=== PATIENT | male | born 1955 | race Caucasian/White ===

== ENCOUNTER 2017-08-07 15:02 | Emergency (ER) | payer MEDICAID ==
--- NOTE | 2017-08-07 15:44 | EDPHY ---
H & P Time Seen by Provider: 08/07/17 15:27 HPI/ROS: CHIEF COMPLAINT: Hypothermic, intoxicated HISTORY OF PRESENT ILLNESS: The patient is a homeless 61 y/o male arriving via EMS after police located him wet, cold, and intoxicated on the street. He was found down next to his wheelchair intoxicated. He had C3-C4 surgery 2 months ago, and states that he should be wearing a brace but was not in his wheelchair or using his brace. He denies neck pain, any associated symptoms or recent coughs or URI symptoms. Parts of the HPI obtained from nurses and EMS as patient was difficult to understand due to intoxicated state. REVIEW OF SYSTEMS: Constitutional: No fever, Eyes: No visual changes ENT: No sore throat Respiratory: Cough, no shortness of breath Cardiac: No chest pain Gastrointestinal: no abdominal pain Genitourinary: no dysuria Musculoskeletal: No leg pain or swelling Skin: No rash Neurological: No headache Psychiatric: depression Past Medical/Surgical History: C3-C4 surgery, not wearing brace Social History: Homeless, non-resident, recently in [place] Physical Exam: General Appearance: Somnolent, cooperative, slurred speech Eyes: Pupils equal and round, no conjunctival pallor or injection ENT, Mouth: Mucous membranes moist Neck: Normal inspection, moves neck easily and fully without apparent pain Respiratory: Lungs are clear to auscultation Cardiovascular: Regular rate and rhythm Gastrointestinal: Abdomen is soft and non-tender Neurological: Drowsy, nonfocal exam Skin: Warm and dry Extremities: Normal inspection Psychiatric: Mood and affect normal Constitutional: Initial Vital Signs Temperature (C) 36.4 C 08/07/17 15:50 Heart Rate 86 08/07/17 15:50 Respiratory Rate 16 08/07/17 15:50 Blood Pressure 112/82 H 08/07/17 15:50 O2 Sat (%) 83 L 08/07/17 15:50 O2 Delivery Mode Nasal Cannula O2 (L/minute) 2 Allergies/Adverse Reactions: No Known Allergies Allergy (Unverified 08/07/17 15:49) Home Medications: Medication Instructions Recorded NK [No Known Home Meds] 08/07/17 Medical Decision Making ED Course/Re-evaluation: The patient is a homeless 61 y/o male with a history of C3-C4 surgery who was found by police cold, wet, and intoxicated. He denies any recent illness, cough , or other associated symptoms. I believe he is just intoxicated and in need of a warm place to sleep [facility]. On an [facility] hold. 1540: The patient was asleep when I entered. He awoke to tactile stimuli. His speech is slurred and difficult to understand. He appears intoxicated. He was slightly hypoxic on room air and was breathing through his mouth. He is on nasal canula oxygen to improve his hypoxia. I suggested [facility] for a warm place to sleep and detox. I observed this patient the emergency department for 3 hours. He is now clinically sober and able to walk with a steady gait. Apparently this patient is not welcome at the [facility]. He will be discharged to the street. Encouraged to go to the [facility]. Differential Diagnosis: Altered mental status including but not limited to hypoglycemia, infectious process, electrolyte abnormality, head injury and intoxicants. Departure - Departure Disposition: Home, Routine, Self-Care Clinical Impression: Intoxication Condition: Good Instructions: Alcohol Intoxication (ED) Additional Instructions: Take Bus #225 to the [facility] at [facility]. The address is [address] [place] [id number] Referrals: [facility] [Outside] - As per Instructions [facility],. [Clinic] - As per Instructions Report Scribed for: Ronit Riggins Report Scribed by: Caitie Scanlon Date of Report: 08/07/17 Time of Report: 15:53 Physician Review and Approval Statement: 08/07/17 15:53 Portions of this note were transcribed by a remote medical coder. I personally performed a history, physical exam, medical decision making, and confirmed accuracy of information the transcribed note.
--- NOTE | 2017-08-07 15:44 | EDPHY ---
H & P Time Seen by Provider: 08/07/17 15:27 HPI/ROS: CHIEF COMPLAINT: Hypothermic, intoxicated HISTORY OF PRESENT ILLNESS: The patient is a homeless 61 y/o male arriving via EMS after police located him wet, cold, and intoxicated on the street. He was found down next to his wheelchair intoxicated. He had C3-C4 surgery 2 months ago, and states that he should be wearing a brace but was not in his wheelchair or using his brace. He denies neck pain, any associated symptoms or recent coughs or URI symptoms. Parts of the HPI obtained from nurses and EMS as patient was difficult to understand due to intoxicated state. REVIEW OF SYSTEMS: Constitutional: No fever, Eyes: No visual changes ENT: No sore throat Respiratory: Cough, no shortness of breath Cardiac: No chest pain Gastrointestinal: no abdominal pain Genitourinary: no dysuria Musculoskeletal: No leg pain or swelling Skin: No rash Neurological: No headache Psychiatric: depression Past Medical/Surgical History: C3-C4 surgery, not wearing brace Social History: Homeless, non-resident, recently in [place] Physical Exam: General Appearance: Somnolent, cooperative, slurred speech Eyes: Pupils equal and round, no conjunctival pallor or injection ENT, Mouth: Mucous membranes moist Neck: Normal inspection, moves neck easily and fully without apparent pain Respiratory: Lungs are clear to auscultation Cardiovascular: Regular rate and rhythm Gastrointestinal: Abdomen is soft and non-tender Neurological: Drowsy, nonfocal exam Skin: Warm and dry Extremities: Normal inspection Psychiatric: Mood and affect normal Constitutional: Initial Vital Signs Temperature (C) 36.4 C 08/07/17 15:50 Heart Rate 86 08/07/17 15:50 Respiratory Rate 16 08/07/17 15:50 Blood Pressure 112/82 H 08/07/17 15:50 O2 Sat (%) 83 L 08/07/17 15:50 O2 Delivery Mode Nasal Cannula O2 (L/minute) 2 Allergies/Adverse Reactions: No Known Allergies Allergy (Unverified 08/07/17 15:49) Home Medications: Medication Instructions Recorded NK [No Known Home Meds] 08/07/17 Medical Decision Making ED Course/Re-evaluation: The patient is a homeless 61 y/o male with a history of C3-C4 surgery who was found by police cold, wet, and intoxicated. He denies any recent illness, cough , or other associated symptoms. I believe he is just intoxicated and in need of a warm place to sleep [facility]. On an [facility] hold. 1540: The patient was asleep when I entered. He awoke to tactile stimuli. His speech is slurred and difficult to understand. He appears intoxicated. He was slightly hypoxic on room air and was breathing through his mouth. He is on nasal canula oxygen to improve his hypoxia. I suggested [facility] for a warm place to sleep and detox. I observed this patient the emergency department for 3 hours. He is now clinically sober and able to walk with a steady gait. Apparently this patient is not welcome at the [facility]. He will be discharged to the street. Encouraged to go to the [facility]. Differential Diagnosis: Altered mental status including but not limited to hypoglycemia, infectious process, electrolyte abnormality, head injury and intoxicants. Departure - Departure Disposition: Home, Routine, Self-Care Clinical Impression: Intoxication Condition: Good Instructions: Alcohol Intoxication (ED) Additional Instructions: Take Bus #225 to the [facility] at [facility]. The address is [address] [place] [id number] Referrals: [facility] Hours [Outside] - As per Instructions [facility],. [Clinic] - As per Instructions Report Scribed for: Ronit Riggins Report Scribed by: Caitie Scanlon Date of Report: 08/07/17 Time of Report: 15:53 Physician Review and Approval Statement: 08/07/17 15:53 Portions of this note were transcribed by a medical surgical tech. I personally performed a history, physical exam, medical decision making, and confirmed accuracy of information the transcribed note.
--- NOTE | 2017-08-07 15:44 | EDPHY ---
H & P Time Seen by Provider: 08/07/17 15:27 HPI/ROS: CHIEF COMPLAINT: Hypothermic, intoxicated HISTORY OF PRESENT ILLNESS: The patient is a homeless 61 y/o male arriving via EMS after police located him wet, cold, and intoxicated on the street. He was found down next to his wheelchair intoxicated. He had C3-C4 surgery 2 months ago, and states that he should be wearing a brace but was not in his wheelchair or using his brace. He denies neck pain, any associated symptoms or recent coughs or URI symptoms. Parts of the HPI obtained from nurses and EMS as patient was difficult to understand due to intoxicated state. REVIEW OF SYSTEMS: Constitutional: No fever, Eyes: No visual changes ENT: No sore throat Respiratory: Cough, no shortness of breath Cardiac: No chest pain Gastrointestinal: no abdominal pain Genitourinary: no dysuria Musculoskeletal: No leg pain or swelling Skin: No rash Neurological: No headache Psychiatric: depression Past Medical/Surgical History: C3-C4 surgery, not wearing brace Social History: Homeless, non-resident, recently in [place] Physical Exam: General Appearance: Somnolent, cooperative, slurred speech Eyes: Pupils equal and round, no conjunctival pallor or injection ENT, Mouth: Mucous membranes moist Neck: Normal inspection, moves neck easily and fully without apparent pain Respiratory: Lungs are clear to auscultation Cardiovascular: Regular rate and rhythm Gastrointestinal: Abdomen is soft and non-tender Neurological: Drowsy, nonfocal exam Skin: Warm and dry Extremities: Normal inspection Psychiatric: Mood and affect normal Constitutional: Initial Vital Signs Temperature (C) 36.4 C 08/07/17 15:50 Heart Rate 86 08/07/17 15:50 Respiratory Rate 16 08/07/17 15:50 Blood Pressure 112/82 H 08/07/17 15:50 O2 Sat (%) 83 L 08/07/17 15:50 O2 Delivery Mode Nasal Cannula O2 (L/minute) 2 Allergies/Adverse Reactions: No Known Allergies Allergy (Unverified 08/07/17 15:49) Home Medications: Medication Instructions Recorded NK [No Known Home Meds] 08/07/17 Medical Decision Making ED Course/Re-evaluation: The patient is a homeless 61 y/o male with a history of C3-C4 surgery who was found by police cold, wet, and intoxicated. He denies any recent illness, cough , or other associated symptoms. I believe he is just intoxicated and in need of a warm place to sleep [facility]. On an [facility] hold. 1540: The patient was asleep when I entered. He awoke to tactile stimuli. His speech is slurred and difficult to understand. He appears intoxicated. He was slightly hypoxic on room air and was breathing through his mouth. He is on nasal canula oxygen to improve his hypoxia. I suggested [facility] for a warm place to sleep and detox. I observed this patient the emergency department for 3 hours. He is now clinically sober and able to walk with a steady gait. Apparently this patient is not welcome at the [facility]. He will be discharged to the street. Encouraged to [facility] to [facility]. Differential Diagnosis: Altered mental status including but not limited to hypoglycemia, infectious process, electrolyte abnormality, head injury and intoxicants. Departure - Departure Disposition: Home, Routine, Self-Care Clinical Impression: Intoxication Condition: Good Instructions: Alcohol Intoxication (ED) Additional Instructions: Take Bus #225 to the [facility] at [facility]. The address is [address] [place] [id number] Referrals: [facility] Hours [Outside] - As per Instructions [facility],. [Clinic] - As per Instructions Report Scribed for: Ronit Riggins Report Scribed by: Caitie Scanlon Date of Report: 08/07/17 Time of Report: 15:53 Physician Review and Approval Statement: 08/07/17 15:53 Portions of this note were transcribed by a medical physiologist. I personally performed a history, physical exam, medical decision making, and confirmed accuracy of information the transcribed note.
[2017-08-07 15:56] VITALS: RESP 16; TEMP 97.5
[2017-08-07 17:07] VITALS: BP 136/84; PULSE 87; O2SAT 98
== END 2017-08-07 19:53 | disposition home or self-care (01) ==
DX: F10.129 Alcohol abuse with intoxication, unspecified (principal)

== ENCOUNTER 2017-08-09 17:42 | Inpatient (IN) | payer MEDICAID ==
--- NOTE | 2017-08-09 18:03 | EDPHY ---
H & P - Medical/Surgical History Hx Asthma: No Hx Chronic Respiratory Disease: No Hx Diabetes: No Hx Cardiac Disease: No Hx Renal Disease: No Hx Cirrhosis: No Hx Alcoholism: Yes Hx HIV/AIDS: No Hx Splenectomy or Spleen Trauma: No Other PMH: neck fracture, neck surgery - Social History Smoking Status: Current every day smoker Constitutional: Initial Vital Signs Temperature (C) 36.4 C 08/09/17 17:45 Heart Rate 99 08/09/17 17:45 Respiratory Rate 18 08/09/17 17:45 Blood Pressure 120/98 H 08/09/17 17:45 O2 Sat (%) 92 08/09/17 17:45 O2 Delivery Mode Room Air Allergies/Adverse Reactions: No Known Allergies Allergy (Unverified 08/07/17 15:49) Home Medications: Medication Instructions Recorded Dexamethasone 2 mg PO DAILY 08/09/17 Gabapentin [Neurontin 300 MG (*)] 300 mg PO TID 08/09/17 Loperamide HCl [Imodium 2 mg (*)] 2 mg PO DAILY PRN 08/09/17 Sulfamethox/Tmp 800/160 mg 1 tab PO BID 08/09/17 [Bactrim Ds] Medical Decision Making - Diagnostics Imaging Results: Imaging Impressions Chest X-Ray 08/09/17 18:11 Impression: Left lower lobe airspace opacities may represent a developing pneumonia in the appropriate clinical setting. Recommend follow-up chest x-ray in 6-8 weeks to verify resolution. Imaging: I viewed and interpreted images myself ED Course/Re-evaluation: CHIEF COMPLAINT: Alcohol intoxication, malaise HISTORY OF PRESENT ILLNESS: The patient is a chronic alcoholic living on the street. Patient drinks on a daily basis and obtains whatever alcohol is available. Patient was found by bystanders who called EMS system. He was here two days ago with alcohol intoxication. He complains today of malaise and cough. Patient denies any injuries denies loss of consciousness denies any recent trauma. Patient denies co-ingestion. Patient denies suicidal or homicidal behavior. He is a poor historian. REVIEW OF SYSTEMS: Difficult to obtain due intoxication. PHYSICAL EXAM: General Appearance: Alert, well hydrated, appropriate, and non-toxic appearing. Head: Atraumatic without scalp tenderness or obvious injury Eyes: Pupils equal, round, reactive to light and accommodation, EOMI, no trauma , no injection. Nose: Profuse rhinorrhea Throat: Mucus membranes moist. Neck: Removed his own c-collar. Respiratory: Coarse rhonchi throughout. Cardiovascular: Regular rate and rhythm, no murmurs, rubs, or gallops. Good capillary refill all extremities. Gastrointestinal: Abdomen is soft, nontender, non-distended, no masses, no rebound, no guarding, no peritoneal signs. Musculoskeletal: Normal active ROM of all extremities, atraumatic. Neurological: Alert, mumbling incoherently, follows commands. Non-focal neuro exam. Skin: No rashes, good turgor, no nodules on palpation. PAST MEDICAL HISTORY: Alcohol abuse PAST SURGICAL HISTORY: C3-C4 surgery 2 months ago SOCIAL HISTORY: Homeless, from [place] Prior medical records reviewed including ED visit 08/07/17 for intoxication. DIAGNOSTICS/PROCEDURES/CRITICAL CARE TIME: Study: PA and Lateral Chest X-ray Indication: cough shortness of breath Results: After viewing the images myself on the PACS system. My interpretation of the images is: Left lower lobe infiltrate. The 12 lead EKG was interpreted by myself. Sinus rhythm rate 97. See hard copy and/or "tracemaster" electronic copy for interpretation. DIFFERENTIAL DIAGNOSIS: The differential diagnosis for the patient's shortness of breath and hypoxemia included but was not limited to pneumonia, myocardial infarction, acute mountain sickness, high altitude pulmonary edema, congestive heart failure, and pulmonary embolus. MEDICAL DECISION MAKING: This is an intoxicated 61 y/o male who presents with profuse rhinorrhea, productive cough, and general malaise for a few days. He has coarse rhonchi in all bauer and is actively coughing and dripping mucus. Plan for IV, labs, and chest x-ray. [place] [id number] with a significant left shift. He has a left lower lobe infiltrate on his chest x-ray. He has got significant sputum production. He has a lactate of 4.1 but part of this is from his homeless dehydrated state. This patient meets criteria for severe sepsis but not septic shock. This patient will receive 2.4 L of normal saline. I will give him 750 of Levaquin. Blood cultures are pending. Lactate will be repeated. This patient will be admitted for severe sepsis secondary to pneumonia. Spoke with hospitalist service. Dr. Teague accepts admission. - Data Points Laboratory Results: Laboratory Results 08/09/17 17:40 08/09/17 17:40 08/09/17 08/09/17 08/09/17 18:40 17:40 17:40 WBC RBC Hgb Hct MCV MCH MCHC RDW Plt Count MPV Neut % (Auto) Lymph % (Auto) Bent % (Auto) Eos % (Auto) Baso % (Auto) Nucleat RBC Rel Count Absolute Neuts (auto) Absolute Lymphs (auto) Absolute Monos (auto) Absolute Eos (auto) Absolute Basos (auto) Absolute Nucleated RBC Immature Gran % Immature Gran # PT INR APTT VBG Lactic Acid 4.1 mmol/L H mmol/L (0.7-2.1) Sodium Potassium Chloride Carbon Dioxide Anion Gap BUN Creatinine Estimated GFR Glucose Calcium Magnesium 2.2 mg/dL mg/dL (1.6-2.3) Total Bilirubin NT-Pro-B Natriuret Pep Procalcitonin 0.05 ng/mL ng/mL (0.02-0.10) Prolactin 08/09/17 08/09/17 08/09/17 17:40 17:40 17:40 WBC RBC Hgb Hct MCV MCH MCHC RDW Plt Count MPV Neut % (Auto) Lymph % (Auto) Bent % (Auto) Eos % (Auto) Baso % (Auto) Nucleat RBC Rel Count Absolute Neuts (auto) Absolute Lymphs (auto) Absolute Monos (auto) Absolute Eos (auto) Absolute Basos (auto) Absolute Nucleated RBC Immature Gran % Immature Gran # PT 13.5 SEC SEC (12.0-15.0) INR 1.04 (0.83-1.16) APTT 27.5 SEC SEC (23.0-38.0) VBG Lactic Acid Sodium 142 mEq/L mEq/L (134-144) Potassium 4.1 mEq/L mEq/L (3.5-5.2) Chloride 101 mEq/L mEq/L (97-110) Carbon Dioxide 20 mEq/l L mEq/l (22-31) Anion Gap 21 mEq/L H mEq/L (8-16) BUN 16 mg/dL mg/dL (7-23) Creatinine 0.9 mg/dL mg/dL (0.7-1.3) Estimated GFR > 60 Glucose 111 mg/dL H mg/dL (70-100) Calcium 9.3 mg/dL mg/dL (8.5-10.4) Magnesium Total Bilirubin 0.3 mg/dL mg/dL (0.1-1.4) NT-Pro-B Natriuret Pep 55 pg/mL pg/mL (0-125) Procalcitonin Prolactin 8.3 ng/mL ng/mL (3.7-17.9) 08/09/17 17:40 WBC 17.41 10^3/uL H 10^3/uL (3.80-9.50) RBC 5.16 10^6/uL 10^6/uL (4.40-6.38) Hgb 16.1 g/dL g/dL (13.7-17.5) Hct 46.5 % % (40.0-51.0) MCV 90.1 fL fL (81.5-99.8) MCH 31.2 pg pg (27.9-34.1) MCHC 34.6 g/dL g/dL (32.4-36.7) RDW 14.9 % % (11.5-15.2) Plt Count 245 10^3/uL 10^3/uL (150-400) MPV 11.0 fL fL (8.7-11.7) Neut % (Auto) 83.1 % H % (39.3-74.2) Lymph % (Auto) 10.8 % L % (15.0-45.0) Bent % (Auto) 5.1 % % (4.5-13.0) Eos % (Auto) 0.1 % L % (0.6-7.6) Baso % (Auto) 0.3 % % (0.3-1.7) Nucleat RBC Rel Count 0.0 % % (0.0-0.2) Absolute Neuts (auto) 14.49 10^3/uL H 10^3/uL (1.70-6.50) Absolute Lymphs (auto) 1.88 10^3/uL 10^3/uL (1.00-3.00) Absolute Monos (auto) 0.88 10^3/uL H 10^3/uL (0.30-0.80) Absolute Eos (auto) 0.01 10^3/uL L 10^3/uL (0.03-0.40) Absolute Basos (auto) 0.05 10^3/uL 10^3/uL (0.02-0.10) Absolute Nucleated RBC 0.00 10^3/uL 10^3/uL (0-0.01) Immature Gran % 0.6 % % (0.0-1.1) Immature Gran # 0.10 10^3/uL 10^3/uL (0.00-0.10) PT INR APTT VBG Lactic Acid Sodium Potassium Chloride Carbon Dioxide Anion Gap BUN Creatinine Estimated GFR Glucose Calcium Magnesium Total Bilirubin NT-Pro-B Natriuret Pep Procalcitonin Prolactin Medications Given: Folic Acid (Folic Acid) 1 mg PO DAILY FELA Stop: 02/05/18 21:14 Last Admin: 08/09/17 21:45 Dose: 1 mg Discontinued Medications Levofloxacin/Dextrose (Levaquin 750 Mg (Premix)) 150 mls @ 100 mls/hr IV EDNOW ONE PRN Reason: Protocol Stop: 08/09/17 20:21 Last Admin: 08/09/17 19:59 Dose: 150 mls Sodium Chloride (Ns) 2,400 mls @ 4,800 mls/hr 30 ml/kg infuse over 30 min ( 2400 ml) IV EDNOW ONE PRN Reason: Protocol Stop: 08/09/17 19:21 Last Admin: 08/09/17 19:58 Dose: 2,400 mls Departure - Departure Disposition: [facility] Inpatient Acute Clinical Impression: Severe sepsis without septic shock, Pneumococcal infection Pneumonia Qualifiers: Pneumonia type: due to unspecified organism Laterality: left Lung location: lower lobe of lung Qualified Code(s): J18.1 - Lobar pneumonia, unspecified organism Condition: Fair Report Scribed for: Derian Shaikh Report Scribed by: Chelsey Fontanez Date of Report: 08/09/17 Time of Report: 18:07
[2017-08-09 18:19] LABS: % IMMATURE GRANULYOCYTES 0.6 % (0.0-1.1); ADD DIFF? NO; ADD MORPH? NO; ADD SCAN? NO; ATYPICAL LYMPHOCYTE FLAG 0 (0-99); FRAGMENT RBC FLAG 0 (0-99); HEMATOCRIT 46.5 % (40.0-51.0); HEMOGLOBIN 16.1 g/dL (13.7-17.5); LEFT SHIFT FLG 0 (0-99); LIPEMIA HEMOLYSIS FLAG 90 (0-99); MEAN CELL HEMOGLOBIN 31.2 pg (27.9-34.1); MEAN CELL HEMOGLOBIN CONCENTR. 34.6 g/dL (32.4-36.7); MEAN CELL VOLUME 90.1 fL (81.5-99.8); PLATELET CLUMPS FLAG 10 (0-99); PLATELET COUNT 245 10^3/uL (150-400); RED BLOOD CELL COUNT 5.16 10^6/uL (4.40-6.38); RED CELL DISTRIBUTION WIDTH 14.9 % (11.5-15.2)
[2017-08-09 18:28] LABS: ANION GAP 21 mEq/L (8-16); CALCIUM 9.3 mg/dL (8.5-10.4); CARBON DIOXIDE 20 mEq/l (22-31); CHLORIDE 101 mEq/L (97-110); CREATININE 0.9 mg/dL (0.7-1.3); GLOMERULAR FILTRATION RATE > 60; GLUCOSE 111 mg/dL (70-100); POTASSIUM 4.1 mEq/L (3.5-5.2); SODIUM 142 mEq/L (134-144)
[2017-08-09 18:44] LABS: PROLACTIN 8.3 ng/mL (3.7-17.9)
[2017-08-09] MEDS ORDERED: NS 2,400 ML IV ONE (18:52)
[2017-08-09 19:08] LABS: BILIRUBIN,TOTAL 0.3 mg/dL (0.1-1.4)
[2017-08-09 19:14] LABS: INR 1.04 (0.83-1.16); PROTIME(PATIENT) 13.5 SEC (12.0-15.0)
[2017-08-09 19:15] LABS: APTT 27.5 SEC (23.0-38.0)
[2017-08-09] MEDS ORDERED: levOFLOXACIN 750 MG/DEXTROSE/150 ML BAG IV ONE (19:48)
[2017-08-09] MEDS ORDERED: oxyCODONE IR 5 MG TAB PO PRN (21:08)
[2017-08-09] MEDS ORDERED: ALBUTEROL 3 ML DEYVIAL IH PRN (21:08)
[2017-08-09] MEDS ORDERED: ACETAMINOPHEN 325 MG TAB PO PRN (21:08)
[2017-08-09] MEDS ORDERED: PROMETHAZINE HCL 25 MG SUPPR PR PRN (21:10)
[2017-08-09] MEDS ORDERED: PROMETHAZINE HCL 25 MG TAB PO PRN (21:10)
[2017-08-09] MEDS ORDERED: LORazepam 2 MG/ML INJ IVP PRN ×2 (21:10)
[2017-08-09] MEDS ORDERED: PROMETHAZINE HCL 25 MG/ML INJ IVP PRN (21:13)
[2017-08-09] MEDS ORDERED: NS 1,000 ML IV SCH (21:15)
--- NOTE | 2017-08-09 21:20 | PDGENHP ---
History and Physical - Chief Complaint Cough, malaise, SOB - History of Present Illness 61 yo male with alcoholism, with malaise, cough, URI symptoms. Most of the history is obtained from the medical record and with discussion with the ED nurse and ED physician. A CXR showed left sided pneumonia and he was started on IV Levaquin. Serum lactate is elevated at 4.1 and sepsis protocol was started. He has received 2.4 L of NS in the E.D. He has become progressively hypoxic and is now on 3 L. His baseline is none. He was confused on admission and continues to be confused. He is able to follow commands. He cannot provide a history. He denies CP, palpitations, leg swelling. He reports cough, SOB, drinking earlier today. Unclear how much ETOH he drinks daily. He is starting to show signs of WD PMHx: Alcohol abuse PAST SURGICAL HISTORY: C3-C4 surgery 2 months ago SOCIAL HISTORY: Homeless, from [place] FmHx: unknown History Information - Allergies/Home Medication List Allergies/Adverse Reactions: No Known Allergies Allergy (Unverified 08/07/17 15:49) Home Medications: Dexamethasone 2 mg PO DAILY 08/09/17 [Last Taken 08/08/17] Gabapentin [Neurontin 300 MG (*)] 300 mg PO TID 08/09/17 [Last Taken 08/08/17] Loperamide HCl [Imodium 2 mg (*)] 2 mg PO DAILY PRN 08/09/17 [Last Taken 09:00] Sulfamethox/Tmp 800/160 mg [Bactrim Ds] 1 tab PO BID 08/09/17 [Last Taken 09:00] I have personally reviewed and updated: medical history, social history - Social History Smoking Status: Current every day smoker Review of Systems Review of Systems: ROS: 10pt was reviewed & negative except for what was stated in HPI & below Physical Exam Physical Exam: Temp Pulse Resp BP Pulse Ox 36.5 C 116 H 20 116/76 93 08/09/17 20:19 08/09/17 20:19 08/09/17 20:19 08/09/17 20:19 08/09/17 20:24 O2 (L/minute) 3 Constitutional: chronically ill appearing Eyes: PERRL, EOMI Ears, Nose, Mouth, Throat: hearing normal, dry mucous membranes Cardiovascular: regular rate and rhythym Respiratory: rhonchi Gastrointestinal: normoactive bowel sounds, soft, non-tender abdomen Skin: warm Musculoskeletal: full muscle strength Neurologic: other (tremulous), No AAOx3 Psychiatric: encephalopathic, No thought process linear Lab Data & Imaging Review 08/09/17 17:40 08/09/17 17:40 WBC 17.41 10^3/uL (3.80-9.50) H 08/09/17 17:40 RBC 5.16 10^6/uL (4.40-6.38) 08/09/17 17:40 Hgb 16.1 g/dL (13.7-17.5) 08/09/17 17:40 Hct 46.5 % (40.0-51.0) 08/09/17 17:40 MCV 90.1 fL (81.5-99.8) 08/09/17 17:40 MCH 31.2 pg (27.9-34.1) 08/09/17 17:40 MCHC 34.6 g/dL (32.4-36.7) 08/09/17 17:40 RDW 14.9 % (11.5-15.2) 08/09/17 17:40 Plt Count 245 10^3/uL (150-400) 08/09/17 17:40 MPV 11.0 fL (8.7-11.7) 08/09/17 17:40 Neut % (Auto) 83.1 % (39.3-74.2) H 08/09/17 17:40 Lymph % (Auto) 10.8 % (15.0-45.0) L 08/09/17 17:40 [place] % (Auto) 5.1 % (4.5-13.0) 08/09/17 17:40 Eos % (Auto) 0.1 % (0.6-7.6) L 08/09/17 17:40 Baso % (Auto) 0.3 % (0.3-1.7) 08/09/17 17:40 Nucleat RBC Rel Count 0.0 % (0.0-0.2) 08/09/17 17:40 Absolute Neuts (auto) 14.49 10^3/uL (1.70-6.50) H 08/09/17 17:40 Absolute Lymphs (auto) 1.88 10^3/uL (1.00-3.00) 08/09/17 17:40 Absolute Monos (auto) 0.88 10^3/uL (0.30-0.80) H 08/09/17 17:40 Absolute Eos (auto) 0.01 10^3/uL (0.03-0.40) L 08/09/17 17:40 Absolute Basos (auto) 0.05 10^3/uL (0.02-0.10) 08/09/17 17:40 Absolute Nucleated RBC 0.00 10^3/uL (0-0.01) 08/09/17 17:40 Immature Gran % 0.6 % (0.0-1.1) 08/09/17 17:40 Immature Gran # 0.10 10^3/uL (0.00-0.10) 08/09/17 17:40 PT 13.5 SEC (12.0-15.0) 08/09/17 17:40 INR 1.04 (0.83-1.16) 08/09/17 17:40 APTT 27.5 SEC (23.0-38.0) 08/09/17 17:40 VBG Lactic Acid 4.1 mmol/L (0.7-2.1) H 08/09/17 18:40 Sodium 142 mEq/L (134-144) 08/09/17 17:40 Potassium 4.1 mEq/L (3.5-5.2) 08/09/17 17:40 Chloride 101 mEq/L (97-110) 08/09/17 17:40 Carbon Dioxide 20 mEq/l (22-31) L 08/09/17 17:40 Anion Gap 21 mEq/L (8-16) H 08/09/17 17:40 BUN 16 mg/dL (7-23) 08/09/17 17:40 Creatinine 0.9 mg/dL (0.7-1.3) 08/09/17 17:40 Estimated GFR > 60 08/09/17 17:40 Glucose 111 mg/dL (70-100) H 08/09/17 17:40 Calcium 9.3 mg/dL (8.5-10.4) 08/09/17 17:40 Total Bilirubin 0.3 mg/dL (0.1-1.4) 08/09/17 17:40 NT-Pro-B Natriuret Pep 55 pg/mL (0-125) 08/09/17 17:40 Procalcitonin 0.05 ng/mL (0.02-0.10) 08/09/17 17:40 Prolactin 8.3 ng/mL (3.7-17.9) 08/09/17 17:40 Assessment & Plan Assessment: #?Sepsis possibly severe, +tachycardia, but no hypotension #Left sided pneumonia, likely Community Acquired, cannot r/o aspiration. #Acute Respiratory Failure #Dehydration #Elevated serum lactate. He does not have e/o of acidosis #ETOH intoxication with early WD #tobacco abuse disorder #homelessness #Acute Encephalopathy Plan: Admit to step down unit pending clinical course and further w/u Will change abx coverage from Levaquin to Zosyn for aspiration coverage. Check PC. He has a leukocytosis. He is not tachycardic or hypotensive. Will also check viral serology. Check sputum. f/u BCx/ Recheck CXR in a.m. to ensure he has tolerated IVF well For now continue with IVF at 75ml /hr CIWA protocol, will not load Lovenox for DVT proph Full code presumed total critical care time spent in the management and evaluation including d/w the ED team is 55 minutes
[2017-08-09] MEDS: FOLIC ACID 1 MG TAB PO SCH (21:45)
--- NOTE | 2017-08-09 21:51 | CPEKG ---
Heart Rate: 97 RR Interval: 619 P-R Interval: 120 QRSD Interval: 86 QT Interval: 376 QTC Interval: 478 P [place]: 68 QRS [place]: 27 T Wave [place]: 42 EKG Severity - BORDERLINE ECG - EKG Impression: SINUS RHYTHM EKG Impression: BORDERLINE PROLONGED QT INTERVAL Electronically Signed By: Derian Shaikh 09-Aug-2017 22:16:03
[2017-08-09] MEDS: GABAPENTIN 300 MG CAP PO SCH (22:45)
[2017-08-10] MEDS ORDERED: CALCIUM CARBONATE 500 MG CHEWABLE TAB PO ONE (02:12)
[2017-08-10 04:44] LABS: % IMMATURE GRANULYOCYTES 0.4 % (0.0-1.1); ABSOLUTE IMMATURE GRANULOCYTES 0.03 10^3/uL (0.00-0.10); ADD DIFF? NO; ADD MORPH? NO; ADD SCAN? NO; ATYPICAL LYMPHOCYTE FLAG 0 (0-99); FRAGMENT RBC FLAG 0 (0-99); HEMATOCRIT 37.2 % (40.0-51.0); LEFT SHIFT FLG 10 (0-99); LIPEMIA HEMOLYSIS FLAG 90 (0-99); MEAN CELL HEMOGLOBIN 32.1 pg (27.9-34.1); MEAN CELL HEMOGLOBIN CONCENTR. 34.9 g/dL (32.4-36.7); MEAN CELL VOLUME 91.9 fL (81.5-99.8); MEAN PLATELET VOLUME 10.9 fL (8.7-11.7); PLATELET CLUMPS FLAG 10 (0-99); PLATELET COUNT 141 10^3/uL (150-400); RED BLOOD CELL COUNT 4.05 10^6/uL (4.40-6.38); RED CELL DISTRIBUTION WIDTH 15.1 % (11.5-15.2)
[2017-08-10 05:08] LABS: ANION GAP 7 mEq/L (8-16); CARBON DIOXIDE 26 mEq/l (22-31); CHLORIDE 107 mEq/L (97-110); CREATININE 0.7 mg/dL (0.7-1.3); GLOMERULAR FILTRATION RATE > 60; GLUCOSE 84 mg/dL (70-100); MAGNESIUM 1.9 mg/dL (1.6-2.3); POTASSIUM 4.3 mEq/L (3.5-5.2); SODIUM 140 mEq/L (134-144)
[2017-08-10] MEDS: GABAPENTIN 300 MG CAP PO SCH ×3 (08:57→23:02)
[2017-08-10] MEDS: ENOXAPARIN 40 MG/0.4 ML SYR SC SCH (08:57)
[2017-08-10] MEDS: THIAMINE HCL 500 MG in NS 100 ML IV SCH (08:58)
[2017-08-10] MEDS: FOLIC ACID 1 MG TAB PO SCH (08:59)
[2017-08-10] MEDS ORDERED: DEXAMETHASONE 2 MG TAB PO SCH (09:00)
[2017-08-10] MEDS ORDERED: FAMOTIDINE 20 MG/NACL 50 ML IV SCH (09:00)
[2017-08-10] MEDS ORDERED: DEXAMETHASONE 2 MG PO SCH (09:00)
--- NOTE | 2017-08-10 09:20 | HOSPPROG ---
Hospitalist Progress Note Assessment/Plan: # acute hypoxic resp failure d/t pna # viral pneumonia - hold abx and follow closely# c3-c4 fusion, about 1 month ago - dexmethasone (hold) - should be in [facility] - ordered - numbness in hands/feet ongoing # COPD with acute exacerbation - inhalers; not on chronic O2 - increase steroids # skin infection - bactrim # chronic diarrhea - immodium # hx IVDU - reports recent neg HIV test # homeless Subjective: feels better today; still coughing Objective: Vital Signs Temp Pulse Resp BP Pulse Ox 36.6 C 94 20 120/86 H 90 L 08/10/17 07:48 08/10/17 07:48 08/10/17 07:48 08/10/17 07:48 08/10/17 07:48 Microbiology 08/09/17 21:55 - Final Sputum, Expectorated 08/09/17 20:10 Respiratory Panel (PCR) - Final Nasal, Sinus - Swab Human Rhinovirus/Enterovirus Laboratory Results 08/10/17 04:20 08/10/17 04:20 08/09/17 08/10/17 08/11/17 05:59 05:59 05:59 Intake Total 5347 Output Total 400 Balance 4947 PT 13.5 SEC (12.0-15.0) 08/09/17 17:40 INR 1.04 (0.83-1.16) 08/09/17 17:40 chart reviewed CXR personally reviewed - Physical Exam Constitutional: unkempt Cardiovascular: regular rate and rhythym, no murmur, rub, or gallop Respiratory: respiratory distress, other (L basilar wheezes), No clear to auscultation, No reduced air movement, No inspiratory crackles Gastrointestinal: normoactive bowel sounds, soft, non-tender abdomen, no palpable masses ICD10 Worksheet Patient Problems: Problems Problem Status Onset Severe sepsis without septic shock Acute Pneumococcal infection Acute Pneumonia Acute
[2017-08-10] MEDS ORDERED: BENZOCAINE UNIT DOSE SPRAY HURRICAINE MM ONE (09:47)
[2017-08-10] MEDS ORDERED: IPRATROPIUM/ALBUTEROL 3 ML DEYVIAL ONE (09:48)
[2017-08-10] MEDS: IPRATROPIUM/ALBUTEROL 3 ML DEYVIAL IH SCH ×3 (09:54→23:37)
[2017-08-10] MEDS: predniSONE 20 MG TAB PO SCH (10:31)
--- NOTE | 2017-08-10 11:16 | ASMTCMCOM ---
CM Note CM Note Notes: Chart reviewed. Patient discussed in rounds. Admitted with sepsis and PNA. Homeless. To transfer to floor, Profoundly weak. No therapy notes yet. CM to follow. Date Signed: 08/10/2017 11:15 AM Electronically Signed By:Kerrie Alarcon RN
--- NOTE | 2017-08-10 11:45 | PDMN ---
Medical Necessity Medical necessity: est los>2mn for sepsis, possibly severe, L PNA, acute resp failure, dehydration, etoh withdrawal, and acute encephalopathy; admit to ICU/ SDU; comorbid homelessness; per order and H&P 08/09/17
[2017-08-10] MEDS: LORazepam 1 MG TAB PO PRN (16:11)
[2017-08-10] MEDS: LOPERAMIDE HCL 2 MG CAP PO PRN (16:13)
[2017-08-10] MEDS ORDERED: PIPERACILLIN/TAZO 3.375 GM/DEX 50 ML IV SCH (21:06)
[2017-08-11 05:31] LABS: % IMMATURE GRANULYOCYTES 0.6 % (0.0-1.1); ABSOLUTE IMMATURE GRANULOCYTES 0.05 10^3/uL (0.00-0.10); ADD DIFF? NO; ADD MORPH? NO; ADD SCAN? NO; ATYPICAL LYMPHOCYTE FLAG 10 (0-99); FRAGMENT RBC FLAG 0 (0-99); HEMATOCRIT 36.9 % (40.0-51.0); HEMOGLOBIN 12.7 g/dL (13.7-17.5); LEFT SHIFT FLG 0 (0-99); LIPEMIA HEMOLYSIS FLAG 90 (0-99); MEAN CELL HEMOGLOBIN 31.5 pg (27.9-34.1); MEAN CELL HEMOGLOBIN CONCENTR. 34.4 g/dL (32.4-36.7); MEAN CELL VOLUME 91.6 fL (81.5-99.8); PLATELET CLUMPS FLAG 0 (0-99); PLATELET COUNT 110 10^3/uL (150-400); RED BLOOD CELL COUNT 4.03 10^6/uL (4.40-6.38); RED CELL DISTRIBUTION WIDTH 14.7 % (11.5-15.2)
[2017-08-11 05:44] LABS: ALANINE AMINOTRANSFERASE 64 IU/L (21-72); ALBUMIN 2.5 g/dL (3.5-5.0); ALKALINE PHOSPHATASE 83 IU/L (38-126); ANION GAP 7 mEq/L (8-16); ASPARTATE AMINOTRANSFERASE 49 IU/L (17-59); BILIRUBIN,TOTAL 0.1 mg/dL (0.1-1.4); CALCIUM 8.4 mg/dL (8.5-10.4); CARBON DIOXIDE 26 mEq/l (22-31); CHLORIDE 106 mEq/L (97-110); CREATININE 0.6 mg/dL (0.7-1.3); GLOMERULAR FILTRATION RATE > 60; GLUCOSE 119 mg/dL (70-100); POTASSIUM 4.2 mEq/L (3.5-5.2); SODIUM 139 mEq/L (134-144); TOTAL PROTEIN 5.5 g/dL (6.3-8.2)
[2017-08-11] MEDS: IPRATROPIUM/ALBUTEROL 3 ML DEYVIAL IH SCH ×4 (06:35→22:08)
[2017-08-11] MEDS: FOLIC ACID 1 MG TAB PO SCH (07:50)
[2017-08-11] MEDS: THIAMINE HCL 500 MG in NS 100 ML IV SCH (07:50)
[2017-08-11] MEDS: predniSONE 20 MG TAB PO SCH (07:50)
[2017-08-11] MEDS: GABAPENTIN 300 MG CAP PO SCH ×3 (07:50→21:40)
[2017-08-11] MEDS: ENOXAPARIN 40 MG/0.4 ML SYR SC SCH (07:51)
[2017-08-11] MEDS ORDERED: LOPERAMIDE HCL 2 MG CAP PO ONE (08:00)
--- NOTE | 2017-08-11 12:05 | HOSPPROG ---
Hospitalist Progress Note Assessment/Plan: # acute hypoxic resp failure d/t pna # viral pneumonia - hold abx and follow closely - prednisone # GPR in blood cultuire - suspect this is a contaminant with low PCT and clinical improvement - will not start abx but recheck BCx; low threshold to start abx # c3-c4 fusion, about 1-2 month ago - dexmethasone (hold) - should be in [place] [facility] - ordered but refuring to weak - numbness in hands/feet ongoing but not significantly changed recently - will check MRI c-spine # COPD with acute exacerbation - inhalers; not on chronic O2 - increase steroids # skin infection - bactrim - dc'd # chronic diarrhea - persistent, check GI panel # hx IVDU - reports recent neg HIV test # homeless Subjective: still feels weak Objective: Vital Signs Temp Pulse Resp BP Pulse Ox 36.6 C 80 18 132/88 H 93 08/11/17 08:00 08/11/17 11:09 08/11/17 11:09 08/11/17 08:00 08/11/17 11:09 Microbiology 08/09/17 21:55 - Final Sputum, Expectorated Laboratory Results 08/11/17 05:22 08/11/17 05:22 08/10/17 08/11/17 08/12/17 05:59 05:59 05:59 Intake Total 5347 1750 Output Total 400 1800 Balance 4947 -50 PT 13.5 SEC (12.0-15.0) 08/09/17 17:40 INR 1.04 (0.83-1.16) 08/09/17 17:40 - Physical Exam Constitutional: no apparent distress, appears nourished Cardiovascular: regular rate and rhythym, no murmur, rub, or gallop Respiratory: expiratory wheeze, inspiratory crackles, respiratory distress (mild ), No reduced air movement Gastrointestinal: normoactive bowel sounds, soft, non-tender abdomen, no palpable masses ICD10 Worksheet Patient Problems: Problems Problem Status Onset Severe sepsis without septic shock Acute Pneumococcal infection Acute Pneumonia Acute
--- NOTE | 2017-08-11 15:40 | ASMTCMCOM ---
CM Note CM Note Notes: [place] Mgr asked that we confirm that [facility] bought pt a bus ticket to [facility]. Contacted guille Partida at [facility] and pt does inded have a ticket for Monday to [place]. Date Signed: 08/11/2017 03:39 PM Electronically Signed By:Kelin Schaefer LCSW
[2017-08-11] MEDS: LOPERAMIDE HCL 2 MG CAP PO PRN (15:43)
[2017-08-11] MEDS: LORazepam 1 MG TAB PO PRN (15:43)
[2017-08-12] MEDS: IPRATROPIUM/ALBUTEROL 3 ML DEYVIAL IH SCH ×4 (05:25→21:23)
[2017-08-12 05:48] LABS: % IMMATURE GRANULYOCYTES 1.4 % (0.0-1.1); ADD DIFF? NO; ADD MORPH? NO; ADD SCAN? NO; ATYPICAL LYMPHOCYTE FLAG 0 (0-99); FRAGMENT RBC FLAG 0 (0-99); HEMATOCRIT 38.4 % (40.0-51.0); HEMOGLOBIN 12.9 g/dL (13.7-17.5); LEFT SHIFT FLG 10 (0-99); LIPEMIA HEMOLYSIS FLAG 80 (0-99); MEAN CELL HEMOGLOBIN 31.4 pg (27.9-34.1); MEAN CELL HEMOGLOBIN CONCENTR. 33.6 g/dL (32.4-36.7); MEAN CELL VOLUME 93.4 fL (81.5-99.8); MEAN PLATELET VOLUME 11.8 fL (8.7-11.7); PLATELET CLUMPS FLAG 0 (0-99); PLATELET COUNT 95 10^3/uL (150-400); RED BLOOD CELL COUNT 4.11 10^6/uL (4.40-6.38); RED CELL DISTRIBUTION WIDTH 15.2 % (11.5-15.2)
[2017-08-12 06:14] LABS: ALANINE AMINOTRANSFERASE 64 IU/L (21-72); ALBUMIN 2.9 g/dL (3.5-5.0); ALKALINE PHOSPHATASE 81 IU/L (38-126); ANION GAP 11 mEq/L (8-16); ASPARTATE AMINOTRANSFERASE 39 IU/L (17-59); BILIRUBIN,TOTAL 0.1 mg/dL (0.1-1.4); CALCIUM 8.5 mg/dL (8.5-10.4); CARBON DIOXIDE 22 mEq/l (22-31); CHLORIDE 106 mEq/L (97-110); CREATININE 0.6 mg/dL (0.7-1.3); GLOMERULAR FILTRATION RATE > 60; GLUCOSE 106 mg/dL (70-100); POTASSIUM 3.5 mEq/L (3.5-5.2); SODIUM 139 mEq/L (134-144); TOTAL PROTEIN 5.7 g/dL (6.3-8.2)
[2017-08-12] MEDS: LOPERAMIDE HCL 2 MG CAP PO PRN ×3 (08:39→22:18)
[2017-08-12] MEDS: FOLIC ACID 1 MG TAB PO SCH (08:40)
[2017-08-12] MEDS: GABAPENTIN 300 MG CAP PO SCH ×3 (08:40→22:13)
[2017-08-12] MEDS: predniSONE 20 MG TAB PO SCH (08:40)
[2017-08-12] MEDS: ENOXAPARIN 40 MG/0.4 ML SYR SC SCH (08:40)
--- NOTE | 2017-08-12 10:16 | HOSPPROG ---
Hospitalist Progress Note Assessment/Plan: 61 yo male with alcoholism, with malaise, cough, URI symptoms. Reviewed his care with Dr Smith. Today is my first encounter with the patient/ chart reviewed. # acute hypoxic resp failure d/t pna -PCR resp panel is + for rhinovirus/enterovirus -on room air # viral pneumonia - hold abx and follow closely - prednisone -now on room air -no leukocytosis -procalcitonin is low -lactate improve w hydration # GPR in blood cultuire - suspect this is a contaminant with low PCT and clinical improvement - will not start abx, second set of blood cx is pending # c3-c4 fusion, about 1-2 month ago - dexamethasone (hold) - should be in [place] [facility] - ordered but refusing to wear - numbness in hands/feet ongoing but not significantly changed recently - awaiting MRI of c spine/ patient went down for MRI and refused it # COPD with acute exacerbation - inhalers; not on chronic O2 -prednisone # skin infection - bactrim - dc'd # chronic diarrhea -GI tract panel is negative likely needs a GI consult if his doesn't resolve per patient, this has been ongoing for years. # hx IVDU - reports recent neg HIV test # homeless #Plan: cont supportive care/ patient is decisional and makes poor decisions/ has refused to wear his [place] collar, refused MRI and has been swearing at me and the staff. Spoke with PT and he is at baseline as far as getting around with his wheelchair. He may leave AMA. Subjective: Jame says no-one cares about all the diarrhea he is having. Objective: Vital Signs Temp Pulse Resp BP Pulse Ox 36.8 C 83 18 134/102 H 93 08/12/17 07:58 08/12/17 08:01 08/12/17 07:58 08/12/17 08:01 08/12/17 07:58 Microbiology 08/11/17 15:45 Gastrointestinal Tract Panel (PCR) - Final Stool No Organism Detected 08/09/17 21:55 - Final Sputum, Expectorated Sputum Culture - Final Laboratory Results 08/12/17 04:44 08/12/17 04:44 08/11/17 08/12/17 08/13/17 05:59 05:59 04:59 Intake Total 1750 904 Output Total 1800 Balance -50 904 PT 13.5 SEC (12.0-15.0) 08/09/17 17:40 INR 1.04 (0.83-1.16) 08/09/17 17:40 - Physical Exam Constitutional: not in pain, chronically ill appearing Eyes: PERRL Ears, Nose, Mouth, Throat: hearing normal Cardiovascular: regular rate and rhythym Respiratory: no respiratory distress Gastrointestinal: normoactive bowel sounds Skin: warm Musculoskeletal: generalized weakness (uses a wheelchair at baseline) Neurologic: AAOx3 Psychiatric: thought process linear, agitated, poor insight ICD10 Worksheet Patient Problems: Problems Problem Status Onset Pneumococcal infection Acute Pneumonia Acute Severe sepsis without septic shock Acute
[2017-08-12] MEDS: THIAMINE HCL 500 MG in NS 100 ML IV SCH (11:10)
[2017-08-12] MEDS ORDERED: DIPHENOXYLATE/ATROPINE LOMOTIL 1 TAB PO ONE (11:27)
--- NOTE | 2017-08-12 14:44 | ASMTCMCOM ---
CM Note CM Note Notes: Reviewed chart for discharge plan, pt's progress. Per MD notes, cervical MRI ordered for today. Pt refused, security called to MRI for assistance, pt uncooperative per RN. Pt has a bus ticket, provided by [employer], to [place] for Mon08/14/17. Anticipate pt will discharge independently w/ no needs Monday or Monday. CM available for any further issues or concerns. Date Signed: 08/12/2017 02:42 PM Electronically Signed By:Shilpa Redmond RN
[2017-08-13] MEDS: IPRATROPIUM/ALBUTEROL 3 ML DEYVIAL IH SCH ×2 (06:30→12:06)
[2017-08-13 07:47] VITALS: BP 124/94; TEMP 98.6
[2017-08-13] MEDS ORDERED: THIAMINE HCL 100 MG TAB PO SCH (09:00)
--- NOTE | 2017-08-13 09:25 | HOSPPROG ---
Hospitalist Progress Note Assessment/Plan: 61 yo male with alcoholism, with malaise, cough, URI symptoms. Reviewed his care with Dr Smith. # acute hypoxic resp failure d/t pna -PCR resp panel is + for rhinovirus/enterovirus -on room air # viral pneumonia - hold abx /has improved without them - prednisone -now on room air -no leukocytosis -procalcitonin is low -lactate improve w hydration # GPR in blood cultuire - suspect this is a contaminant with low PCT and clinical improvement - will not start abx, second set of blood cx shows no growth # c3-c4 fusion, about 1-2 month ago - dexamethasone (hold) - should be in [place] [facility] - ordered but refusing to wear - numbness in hands/feet ongoing but not significantly changed recently - awaiting MRI of c spine/ patient went down for MRI and it was a difficult study # COPD with acute exacerbation - inhalers; not on chronic O2 -prednisone # skin infection - bactrim - dc'd # chronic diarrhea -GI tract panel is negative likely needs a GI consult if his doesn't resolve per patient, this has been ongoing for years. we discussed this and he will get f/u care in [place] # hx IVDU - reports recent neg HIV test # homeless #Plan: dc today/ he is leaving for [place] in the morning. Will ask CM to make sure he has place at [facility]/ longterm. Subjective: Jame has no complaints/anxious to leave. Objective: Vital Signs Temp Pulse Resp BP Pulse Ox 37.0 C 100 16 124/94 H 91 L 08/13/17 07:46 08/13/17 07:46 08/13/17 07:46 08/13/17 07:46 08/13/17 07:46 Laboratory Results 08/12/17 04:44 08/12/17 04:44 08/12/17 08/13/17 08/14/17 06:59 05:59 05:59 Intake Total Balance PT 13.5 SEC (12.0-15.0) 08/09/17 17:40 INR 1.04 (0.83-1.16) 08/09/17 17:40 - Physical Exam Constitutional: not in pain, chronically ill appearing Eyes: PERRL Ears, Nose, Mouth, Throat: hearing normal Cardiovascular: regular rate and rhythym Respiratory: no respiratory distress Skin: warm Musculoskeletal: generalized weakness Neurologic: AAOx3 Psychiatric: interacting appropriately, poor insight, poor judgement ICD10 Worksheet Patient Problems: Problems Problem Status Onset Pneumococcal infection Acute Pneumonia Acute Severe sepsis without septic shock Acute
[2017-08-13] MEDS: predniSONE 20 MG TAB PO SCH ×2 (10:33→10:35)
[2017-08-13] MEDS: FOLIC ACID 1 MG TAB PO SCH (10:33)
[2017-08-13] MEDS: GABAPENTIN 300 MG CAP PO SCH (10:33)
[2017-08-13] MEDS: ENOXAPARIN 40 MG/0.4 ML SYR SC SCH (10:35)
[2017-08-13] MEDS: LOPERAMIDE HCL 2 MG CAP PO PRN (11:53)
[2017-08-13 12:19] VITALS: PULSE 88; RESP 18; O2SAT 94
--- NOTE | 2017-08-13 15:56 | GDS ---
[f rep st] DISCHARGE SUMMARY DISCHARGE DIAGNOSES: 1. Viral pneumonia. 2. Acute hypoxemic respiratory failure. 3. Blood culture positive, was a contaminant. 4. C3-C4 fusion approximately a month ago. 5. Chronic obstructive pulmonary disease with acute exacerbation. 6. History of skin infection. 7. Chronic diarrhea. 8. History of IV drug use. 9. Homelessness. HISTORY OF PRESENT ILLNESS: Briefly, the patient is a 61-year-old male who has a history of alcoholism, as well as recent cervical spine surgery approximately 3 months ago, who presented to the ER with malaise, cough and upper respiratory symptoms. A chest x-ray was performed, which showed left-sided pneumonia, was started on IV Levaquin. His serum lactate was elevated. He could not provide any history on admission. During his stay he improved. Today, the plan is for him to go to [facility] until he can further follow up with [facility] tomorrow. The plan is for him to get a ticket to where his family lives. He is extremely agitated and threatening the staff if he is not discharged today. The plan was to discharge him in the morning. I will go ahead and discharge him this evening. HOSPITAL COURSE: 1. Viral pneumonia. He has improved with out the antibiotics, as procalcitonin is low. He has no leukocytosis. He is on room air. 2. Acute hypoxemic respiratory failure. His PCR panel is positive for rhinovirus, enterovirus. 3. Positive blood culture. This is a contaminant. 4. C3-C4 fusion. This was about 1-2 months ago. A repeat MRI was performed because he has not been wearing his [place] collar. He threw it on the floor and crushed it yesterday. He has been given a new one today to wear. He wears it intermittently. MRI results were vague due to the patient being agitated. 5. Chronic obstructive pulmonary disease with acute exacerbation. Stable on room air. 6. Chronic diarrhea. His GI tract panel is negative. I told him he needs to get further workup in regard to this. He said he will follow up when he gets to the [facility]. DISCHARGE CONDITION: Stable. Blood pressure is 124/94, heart rate 88, respiratory rate 18, O2 sats on room air are 94%, temperature 37 degrees Celsius. MEDICATIONS AT DISCHARGE: Please see the EMR. He was given a dose of 3 Imodium. DISCHARGE INSTRUCTIONS: 1. Recommending that he wear his [place] collar at all times. 2. Resume his home medications except for the antibiotic at discharge. 3. To follow up with a neurosurgeon in the [place] area. Greater than 30 minutes discharging and coordinating his care. /[id number]/MODL MTDD
--- NOTE | 2017-08-13 16:28 | ASMTCMCOM ---
CM Note CM Note Notes: Reviewed chart, spoke w/ Monika, RN regarding pt's progress. Per Shantel Ulrich NP, pt possibly ready for discharge. Call placed to [facility] to reserve longterm bed for tonight. Per Skilled Nursing, pt not eligible for bed (on [facility]'s list of ineligible clients). Update provided to ROMY Funes and Monika, RN. Pt originally to discharge Mon08/14/17 to [facility] to obtain bus ticket for [place]. Pt grew increasingly angry during shift, demanding to be discharged by 1700. Met w/ pt to discuss discharge further. Pt swearing and yelling - "you just don't understand, none of you get it. I have talked until I am blue in the face." Attempted to help pt calm down. Pt throwing things around room. Support and reassurance offered; pt refused CM assistance stating "you are not helping." Attempted to clarify pt's needs for obtaining his bus ticket in the AM. Pt states his bus ticket won't be at the [facility], his renal case manager will have it in the morning at the [facility]. Per prior CM notes, Marya Partida at [facility] has bus ticket. Pt repeatedly stating "that's not true, you don't know anything, you don't get it." Pt wishing to discharge to [facility] tonight to meet w/ his renal case manager at 0700. Pt growing increasingly agitated, making threatening remarks. Security called to bedside. Shantel Ulrich NP alerted; Shantel to bedside. Discharge orders written. Pt requesting transportation assistance; two local one-way bus passes provided. Pt instructed to follow up as directed. Three Imodium tabs provided by pharmacy at Shantel's request. Pt left in a cordero, forgot two of his own personal prescription bottles w/ meds. CM attempted to find pt outside hospital without success. Meds sent to security. Shantel alerted. CM avail for any further issues or concerns. Final Discharge Plan: [facility], bus ticket to [place] on Mon08/14/17 Date Signed: 08/13/2017 04:27 PM Electronically Signed By:Shilpa Redmond RN
--- NOTE | 2017-08-13 16:30 | ASDISCHSUM ---
Discharge Information Plan Status:Homeless/[facility] Medically Cleared to Leave:08/13/2017 Discharge Date:08/13/2017 03:15 PM CM D/C Disposition:Home, Routine, Self-Care ADT D/C Disposition:Against Medical Advice Projected Discharge Date:08/12/2017 12:00 AM Transportation at D/C:Bus Ticket Discharge Delay Reason: Follow-Up Date:08/12/2017 12:00 AM Discharge Slot:2 - 12:01 pm - 18:00 pm Final Diagnosis:Acute hypoxic resp failure d/t PNA (viral), viral pneumonia, GPR, c3-c4 fusion (rece nt), COPD w/ acute exacerbation, skin infection, chronic diarrhea, hx IVDU, Placement Information Patient Contact Information Contact Name:RIO Relationship: Address: Home Phone: Work Phone: City: Alternate Phone: State/Relationship Analytics Code: Email: Financial Information Financial Class: Primary Plan Desc:[facility] Primary Plan Number:[id number] Secondary Plan Desc: Secondary Plan Number: Assessment Information LACE LACE Length of stay for Answers: 1 day current admission Acuity / Level of Care Answers: Was the patient admitted to hospital via the emergency department? Yes: Emergency dept visits in Answers: 1 last 6 months Score: 5 Date Signed: 08/10/2017 11:13 AM Electronically Signed By:Kerrie Alarcon RN [facility] CM Progress Note CM Note CM Note Notes: Chart reviewed. Patient discussed in rounds. Admitted with sepsis and PNA. Homeless. To transfer to floor, Profoundly weak. No therapy notes yet. CM to follow. Date Signed: 08/10/2017 11:15 AM Electronically Signed By:Kerrie Alarcon RN [facility] CM Progress Note CM Note CM Note Notes: [place] Mgr asked that we confirm that [employer] bought pt a bus ticket to [facility]. Contacted guille Partida at [employer] and pt does inded have a ticket for Monday to [place]. Date Signed: 08/11/2017 03:39 PM Electronically Signed By:Kelin Schaefer LCSW [facility] CM Progress Note CM Note CM Note Notes: Reviewed chart for discharge plan, pt's progress. Per MD notes, cervical MRI ordered for today. Pt refused, security called to MRI for assistance, pt uncooperative per RN. Pt has a bus ticket, provided by [employer], to [place] for Mon08/14/17. Anticipate pt will discharge independently w/ no needs Monday or Monday. CM available for any further issues or concerns. Date Signed: 08/12/2017 02:42 PM Electronically Signed By:Shilpa Redmond RN [facility] CM Progress Note CM Note CM Note Notes: Reviewed chart, spoke w/ AMIRA Frank regarding pt's progress. Per Shantel Ulrich NP, pt possibly ready for discharge. Call placed to [facility] to reserve snf bed for allie. Per [facility], pt not eligible for bed (on [facility]'s list of ineligible clients). Update provided to ROMY Funes and AMIRA Frank. Pt originally to discharge Mon08/14/17 to [employer] to obtain bus ticket for [place]. Pt grew increasingly angry during shift, demanding to be discharged by 1700. Met w/ pt to discuss discharge further. Pt swearing and yelling - "you just don't understand, none of you get it. I have talked until I am blue in the face." Attempted to help pt calm down. Pt throwing things around room. Support and reassurance offered; pt refused CM assistance stating "you are not helping." Attempted to clarify pt's needs for obtaining his bus ticket in the AM. Pt states his bus ticket won't be at the [employer], his family independence case manager will have it in the morning at the [facility]. Per prior CM notes, Guille Partida at [employer] has bus ticket. Pt repeatedly stating "that's not true, you don't know anything, you don't get it." [facility] family independence case manager at 0700. Pt growing increasingly agitated, making threatening remarks. Security called to bedside. Shantel Ulrich NP alerted; Shantel to bedside. Discharge orders written. Pt requesting transportation assistance; two local one-way bus passes provided. Pt instructed to follow up as directed. Three Imodium tabs provided by pharmacy at Shantel's request. Pt left in a cordero, forgot two of his own personal prescription bottles w/ meds. CM attempted to find pt outside hospital without success. Meds sent to security. Shantel alerted. CM avail for any further issues or concerns. Final Discharge Plan: [facility], [facility], bus ticket to [place] on Mon08/14/17 Date Signed: 08/13/2017 04:27 PM Electronically Signed By:Shilpa Redmond RN Intervention Information Intervention Type:*Incorrect Registration Date of Service:08/11/2017 11:42 AM Patient Type:Inpatient Staff Member:AMIRA Arteaga Susan Hours: Discipline: Severity: Comment:
--- NOTE | 2017-08-16 13:50 | PQFORM ---
PHYSICIAN QUERY FORM Needs Your Response This query form is being sent to you to assure this patient record is coded properly. Please respond to the question below: ONBOARDING SPECIALIST QUESTION: Dr. Mccormick, The diagnosis of Severe Sepsis due to Pneumonia is documented as the reason for admission and on the H&P dated 08/09/2017. Would this be appropriate as an additional diagnosis on the discharge summary? Yes X No Other Clinically Undetermined Many thanks, CASSY Kendrick [facility]/Coding Department INSTRUCTIONS FOR RESPONSE: Answer question by clicking on the "Edit Document" button. Move cursor to area below the stars. When complete, hit "Save." Click on the "Sign" button, then click "Sign" again. Type in your PIN and hit "Enter." MTDD
== END 2017-08-13 15:15 | disposition left against medical advice (07) | DRG 871 ==
LOC: EDUNIT# → OBSVTOIN 21:08 → F2N 22:23 → F3E 08-11 13:45
PROVIDERS: ADMIT Family Medicine; ATTEND Hospitalist
DX: A40.3 Sepsis due to Streptococcus pneumoniae (principal); R65.20 Severe sepsis without septic shock; J12.9 Viral pneumonia, unspecified; J96.01 Acute respiratory failure with hypoxia; J44.1 Chronic obstructive pulmonary disease with (acute) exacerbation; G93.40 Encephalopathy, unspecified; F10.220 Alcohol dependence with intoxication, uncomplicated; F17.210 Nicotine dependence, cigarettes, uncomplicated; L08.9 Local infection of the skin and subcutaneous tissue, unspecified; K52.9 Noninfective gastroenteritis and colitis, unspecified; Z59.0 Homelessness; Z98.1 Arthrodesis status
CPT/HCPCS: 92610-GN; 96365; 96366; 97161-GP; 97167-GO; 97530-GP; 97532-GO; 97535-GO; J1650; J1956; J2543; J3411